=== PATIENT | female | born 1990 | race American Indian/Alaskan Native ===

== ENCOUNTER 2019-08-16 09:47 | Emergency (ER) | payer SELFPAY ==
[2019-08-16 09:53] VITALS: BP 128/89
--- NOTE | 2019-08-16 10:37 | Emergency Department Report ---
- General Chief complaint: Skin/Abscess/Foreign Body Stated complaint: EYE CLOSING/SPIDER BITE/SORE Time Seen by Provider: 08/16/19 10:29 Source: patient Mode of arrival: Ambulatory Limitations: No Limitations - History of Present Illness Initial comments: Patient is 29 years old female with history of diabetes. Patient presented to the ER complaining of multiple area of skin swelling and boils including left upper arm neck, scalp and lower extremities. Patient stated that she had this issue for a while. Patient denied any fever or chills. No nausea or vomiting. MD complaint: abscess/boil, lesion -: days(s) (5) - Related Data Home Medications Medication Instructions Recorded Confirmed Last Taken Insulin Glargine,Hum.rec.anlog 30 units SQ HS 04/22/14 04/22/14 04/21/14 [Lantus] Insulin Lispro [Humalog] PRN 04/22/14 04/22/14 Unknown Allergies Allergy/AdvReac Type Severity Reaction Status Date / Time No Known Allergies Allergy Unverified 04/22/14 16:01 Abscess Boil HPI - HPI Chief Complaint: Skin/Abscess/Foreign Body Stated Complaint: EYE CLOSING/SPIDER BITE/SORE Time Seen by Provider: 08/16/19 10:29 Home Medications: Home Medications Medication Instructions Recorded Confirmed Last Taken Insulin Glargine,Hum.rec.anlog 30 units SQ HS 04/22/14 04/22/14 04/21/14 [Lantus] Insulin Lispro [Humalog] PRN 04/22/14 04/22/14 Unknown Allergies/Adverse Reactions: Allergies Allergy/AdvReac Type Severity Reaction Status Date / Time No Known Allergies Allergy Unverified 04/22/14 16:01 ED Review of Systems ROS: Stated complaint: EYE CLOSING/SPIDER BITE/SORE Other details as noted in HPI Comment: All other systems reviewed and negative Constitutional: denies: chills, fever Respiratory: denies: cough, shortness of breath, SOB with exertion Cardiovascular: denies: chest pain, palpitations Gastrointestinal: denies: abdominal pain Skin: lesions. denies: change in color ED Past Medical Hx - Past Medical History Previous Medical History?: Yes Hx Diabetes: Yes - Social History Smoking Status: Never Smoker Substance Use Type: None - Medications Home Medications: Home Medications Medication Instructions Recorded Confirmed Last Taken Type Insulin Glargine,Hum.rec.anlog 30 units SQ HS 04/22/14 04/22/14 04/21/14 History [Lantus] Insulin Lispro [Humalog] PRN 04/22/14 04/22/14 Unknown History ED Physical Exam - General Limitations: No Limitations General appearance: alert, in no apparent distress - Head Head exam: Present: atraumatic, normocephalic, normal inspection - Eye Eye exam: Present: normal appearance - ENT ENT exam: Present: normal exam, normal orophraynx, mucous membranes moist - Neck Neck exam: Present: normal inspection, full ROM. Absent: tenderness, meningismus - Respiratory Respiratory exam: Present: normal lung sounds bilaterally - Cardiovascular Cardiovascular Exam: Present: regular rate, normal rhythm, normal heart sounds - GI/Abdominal GI/Abdominal exam: Present: soft. Absent: distended, tenderness, guarding, rebound - Neurological Exam Neurological exam: Present: alert, oriented X3, CN II-XII intact - Skin Skin exam: Present: other (multiple area of impetigo.) ED Course Vital Signs 08/16/19 09:53 Temperature 98.7 F Pulse Rate 107 H Respiratory 16 Rate Blood Pressure 128/89 [Right] O2 Sat by Pulse 99 Oximetry Critical care attestation.: If time is entered above; I have spent that time in minutes in the direct care of this critically ill patient, excluding procedure time. ED Disposition Clinical Impression: Impetigo Disposition: DC-01 TO HOME OR SELFCARE Is pt being admited?: No Condition: Stable Instructions: Impetigo (ED) Referrals: [facility] [Provider Group] - 3-5 Days
== END 2019-08-16 11:57 | disposition home or self-care (01) ==
LOC: ED 09:47
DX: L01.00 Impetigo, unspecified (principal); E11.9 Type 2 diabetes mellitus without complications; Z79.4 Long term (current) use of insulin
CPT/HCPCS: 82962

== ENCOUNTER 2020-02-25 10:14 | Emergency (ER) | payer SELFPAY ==
[2020-02-25] MEDS ORDERED: CLINDAMYCIN 600 MG/50 mL 600 MG/50 ML BAG IV ONE (10:45)
[2020-02-25] MEDS ORDERED: SODIUM CHLORIDE 0.9% 1000 ML 1,000 ML IV ONE (10:45)
[2020-02-25] MEDS ORDERED: MORPHINE 2 MG/1 ML INJ IV ONE (10:47)
[2020-02-25] MEDS ORDERED: ONDANSETRON 4 MG/2 ML INJ IV ONE (10:47)
--- NOTE | 2020-02-25 11:15 | Emergency Department Report ---
Abscess Boil HPI - HPI Chief Complaint: Skin/Abscess/Foreign Body Stated Complaint: SWOLLEN MOUTH Time Seen by Provider: 02/25/20 10:44 Duration: 2 Days Severity: Moderate History: Yes Pain HPI: 29-year-old -[place] female with a history of diabetes type 1 comes in complaining of swelling to her lower jaw and chin x2 days. Patient denies any injury or toothache prior to swelling. Patient states pain is a 10 out of 10. Last menstrual period was 02/07/2020. Patient has no known drug allergies. She is currently on insulin. Home Medications: Home Medications Medication Instructions Recorded Confirmed Last Taken Insulin Glargine,Hum.rec.anlog 30 units SQ HS 04/22/14 04/22/14 04/21/14 [Lantus] Insulin Lispro [Humalog] PRN 04/22/14 04/22/14 Unknown Previous Rx's Medication Instructions Recorded Last Taken Type Amoxicillin/Potassium Clav 1 each PO BID #20 tablet 08/16/19 Unknown Rx [Augmentin 875-125 Tablet] Naproxen [Naprosyn] 500 mg PO BID #14 tablet 08/16/19 Unknown Rx Clindamycin [Clindamycin CAP] 300 mg PO Q8H 10 Days #30 cap 02/25/20 Unknown Rx Fluconazole [Diflucan TAB] 150 mg PO ONCE #1 tablet 02/25/20 Unknown Rx traMADoL [Ultram 50 MG tab] 50 mg PO Q6HR PRN #12 tablet 02/25/20 Unknown Rx Allergies/Adverse Reactions: Allergies Allergy/AdvReac Type Severity Reaction Status Date / Time No Known Allergies Allergy Verified 02/25/20 10:22 ED Review of Systems ROS: Stated complaint: SWOLLEN MOUTH Other details as noted in HPI ED Past Medical Hx - Past Medical History Previous Medical History?: Yes Hx Diabetes: Yes - Surgical History Past Surgical History?: No - Social History Smoking Status: Never Smoker Substance Use Type: None - Medications Home Medications: Home Medications Medication Instructions Recorded Confirmed Last Taken Type Insulin Glargine,Hum.rec.anlog 30 units SQ HS 04/22/14 04/22/14 04/21/14 History [Lantus] Insulin Lispro [Humalog] PRN 04/22/14 04/22/14 Unknown History Amoxicillin/Potassium Clav 1 each PO BID #20 tablet 08/16/19 Unknown Rx [Augmentin 875-125 Tablet] Naproxen [Naprosyn] 500 mg PO BID #14 tablet 08/16/19 Unknown Rx Clindamycin [Clindamycin CAP] 300 mg PO Q8H 10 Days #30 cap 02/25/20 Unknown Rx Fluconazole [Diflucan TAB] 150 mg PO ONCE #1 tablet 02/25/20 Unknown Rx traMADoL [Ultram 50 MG tab] 50 mg PO Q6HR PRN #12 tablet 02/25/20 Unknown Rx ED Abscess Boil Physical Exam - Exam General: Vital signs noted. No distress. Alert and acting appropriately. Size: >5 cm Exam: Yes Tenderness, Yes Surrounding Cellulites/Erythema, Yes Normal Neurologic Exam, Yes Normal Circulation, No Heart Murmur Exam: Left chin and left medial mandible swelling, erythematous, tenderness open area. ED Course Vital Signs 02/25/20 02/25/20 10:21 10:22 Temperature 98.7 F Pulse Rate 111 H Respiratory 16 Rate Blood Pressure 111/78 O2 Sat by Pulse 100 Oximetry - Reevaluation(s) Reevaluation #1: 02/25/20 12:22 Patient reports she feels much better after having pain medicine antibiotics and fluids. Critical care attestation.: If time is entered above; I have spent that time in minutes in the direct care of this critically ill patient, excluding procedure time. ED Medical Decision Making - Lab Data Result diagrams: 02/25/20 11:06 02/25/20 11:03 - Medical Decision Making 29-year-old -[place] female with a history of diabetes type 1 comes in complaining of swelling to her lower jaw and chin x2 days. Patient denies any injury or toothache prior to swelling. Patient states pain is a 10 out of 10. Last menstrual period was 02/07/2020. Patient has no known drug allergies. She is currently on insulin. Blood sugar was 329. CBC CMP IV normal saline clindamycin 600 mg IV has been ordered. Pain medicine has been placed. Antinausea medicine has been placed. ED Disposition Clinical Impression: Cellulitis of chin, Hyperglycemia, Diabetes mellitus, non-insulin dependent Disposition: DC-01 TO HOME OR SELFCARE Is pt being admited?: No Does the pt Need Aspirin: No Condition: Stable Instructions: Cellulitis (ED), Diabetes Mellitus Type 1 in Adults (ED), Diabetes Mellitus Type 2 in Adults (ED) Additional Instructions: Complete antibiotics as prescribed. Continue with your insulin. Increase your fluid intake advance your diet as tolerated follow-up with your primary care provider I have listed 1 below for your convenience. Prescriptions: Clindamycin [Clindamycin CAP] 300 mg PO Q8H 10 Days #30 cap Fluconazole [Diflucan TAB] 150 mg PO ONCE #1 tablet traMADoL [Ultram 50 MG tab] 50 mg PO Q6HR PRN #12 tablet PRN Reason: Pain Referrals: PRIMARY MD BETO [Primary Care Provider] - 3-5 Days LAUREN AMIN MD [Staff Physician] - 3-5 Days Forms: Work/School Release Form(ED)
[2020-02-25 11:46] LABS: Basophils % (Auto) 0.4 % (0.0-1.8); Eosinophils # (Auto) 0.1 K/mm3 (0.0-0.4); Eosinophils % (Auto) 0.6 % (0.0-4.3); Hematocrit 33.4 % (30.3-42.9); Hemoglobin 11.2 gm/dl (10.1-14.3); Lymphocytes # (Auto) 1.7 K/mm3 (1.2-5.4); Lymphocytes % (Auto) 15.7 % (13.4-35.0); Mean Corpuscular HGB Conc 34 % (30-34); Mean Corpuscular Volume 89 fl (79-97); Monocytes # (Auto) 0.7 K/mm3 (0.0-0.8); Monocytes % (Auto) 6.8 % (0.0-7.3); Platelet Count 319 K/mm3 (140-440); Red Blood Count 3.74 M/mm3 (3.65-5.03); Red Cell Distribution Width 13.1 % (13.2-15.2)
[2020-02-25 12:13] LABS: BUN/Creatinine Ratio 16; Blood Urea Nitrogen 14 mg/dL (7-17); Calcium 9.2 mg/dL (8.4-10.2); Hemolysis Index 4
[2020-02-25] MEDS ORDERED: ACETAMINOPHEN 325 MG TAB PO ONE (12:27)
[2020-02-25 12:42] VITALS: BP 110/74
== END 2020-02-25 12:41 | disposition home or self-care (01) ==
LOC: ED 10:14
DX: L03.211 Cellulitis of face (principal); E10.65 Type 1 diabetes mellitus with hyperglycemia; Z79.4 Long term (current) use of insulin; Z79.2 Long term (current) use of antibiotics; Z79.899 Other long term (current) drug therapy
CPT/HCPCS: 36415; 80048; 82962; 85025; 96365; 96375; 99284; J2270; J2405; J7030